=== PATIENT | male | born 1975 | race Two or more races ===

== ENCOUNTER 2018-02-16 09:00 | Emergency (ER) | payer MEDICAID ==
[~2018-02-16] VITALS: Ht 170.2 cm; Wt 70.3 kg
--- NOTE | 2018-02-16 09:32 | Emergency Room Report ---
History of Present Illness General Chief Complaint: Pain Source: Patient, EMS Present Illness HPI Patient is brought by police department for medical clearance He is under custody Patient had complained of right-sided inguinal hernia And was brought in for further eval Patient has had this hernia for extended period time He reports that at times he gets bigger and smaller Denies any other chest pain denies any abdominal pain Allergies: Coded Allergies: No Known Allergies (Unverified , 02/16/18) Patient History Past Medical History: see triage record Pertinent Family History: none Reviewed Nursing Documentation: PMH: Agreed; PSxH: Agreed Nursing Documentation-PMH Past Medical History: No History, Except For Hx Cardiac Problems: No - HIV Hx Gastrointestinal Problems: Yes - HERNIA Review of Systems All Other Systems: negative except mentioned in HPI Physical Exam Vital Signs Date Time Temp Pulse Resp B/P (MAP) Pulse Ox O2 Delivery O2 Flow Rate FiO2 02/16/18 08:57 98.4 102 20 118/62 98 Room Air 98.4 Sp02 EP Interpretation: reviewed, normal General Appearance: well appearing Head: normocephalic, atraumatic Eyes: bilateral eye PERRL ENT: normal pharynx, no angioedema Neck: supple Respiratory: lungs clear Cardiovascular #1: regular rate, rhythm Gastrointestinal: other - Small palpable right-sided inguinal hernia, easily reducible and soft Musculoskeletal: other - Moving both upper extremities equally, sensory intact in lower extremity Neurologic: alert, oriented x3, responsive Skin: no rash Lymphatic: no adenopathy Medical Decision Making Diagnostic Impression: Primary Impression: hernia ER Course Patient has clinical findings consistent with inguinal hernia The area soft and easily reducible this is a fairly chronic pathology does not appear to show any signs of incarceration or strangulation and is otherwise stable for continued outpatient follow-up Last Vital Signs Date Time Temp Pulse Resp B/P (MAP) Pulse Ox O2 Delivery O2 Flow Rate FiO2 02/16/18 09:10 98.4 02/16/18 08:57 102 20 118/62 98 Room Air Status: unchanged Disposition: D/C TO LAW ENFORCEMENT IN [facility] Condition: Stable Departure Forms: Detention Clearance Patient Instructions: Inguinal Hernia, Adult, [id number] Additional Instructions[facility], follow-up primary physician as an outpatient basis return to the ER with any worsening symptoms Jaswinder Adkins DO February 16, 2018 09:32
[2018-02-16 09:33] VITALS: BP 118/62
== END 2018-02-16 09:35 ==
LOC: EDBD 09:00 → EMR 09:33
DX: K40.90 Unilateral inguinal hernia, without obstruction or gangrene, not specified as recurrent (principal)
CPT/HCPCS: 99283